=== PATIENT | female | born 1985 | race Caucasian/White ===

== ENCOUNTER → 2016-04-28 | Outpatient (REF) | payer BC | END | disposition home or self-care (01) | LOC: M LAB REF 16:22 | PROVIDERS: ATTEND Obstetrics & Gynecology | DX: R35.0 Frequency of micturition (principal); N30.11 Interstitial cystitis (chronic) with hematuria; R30.0 Dysuria ==

== ENCOUNTER → 2023-07-13 | Outpatient (REF) | LOC: M PLAIMG 10:38 | PROVIDERS: ATTEND Internal Medicine | DX: R52 Pain, unspecified (principal) ==